=== PATIENT | female | born 1950 | race Caucasian/White ===

== ENCOUNTER → 2017-02-16 | Outpatient (CLI) | payer MEDICARE, OTHER ==
[2017-02-16 10:24] LABS: HEMOGLOBIN 15.5 gm/dl (12.3-15.3); RED BLOOD COUNT 4.79 M/UL (4.00-5.10); WHITE BLOOD COUNT 8.9 K/UL (4.5-11.0)
[2017-02-16 10:50] LABS: BUN/CREATININE RATIO 20 (0-10)
== END ==
LOC: CT 09:00
PROVIDERS: Internal Medicine
DX: R10.9 Unspecified abdominal pain (principal); R53.83 Other fatigue; E78.5 Hyperlipidemia, unspecified; I10 Essential (primary) hypertension; E55.9 Vitamin D deficiency, unspecified; Z79.899 Other long term (current) drug therapy
CPT/HCPCS: 36415; 80053; 80074; 84443; 85025; J7050; Q9962

== ENCOUNTER → 2017-04-06 | Outpatient (CLI) | payer MEDICARE | LOC: RAD 08:59 | DX: R10.32 Left lower quadrant pain (principal) | CPT/HCPCS: 74250 ==

== ENCOUNTER → 2020-12-22 | Outpatient (CLI) | payer MEDICARE | LOC: RAD 17:12 | DX: M17.0 Bilateral primary osteoarthritis of knee (principal); M79.671 Pain in right foot; M25.471 Effusion, right ankle; Z86.718 Personal history of other venous thrombosis and embolism | CPT/HCPCS: 73564; 73610 ==

== ENCOUNTER → 2021-02-09 | Outpatient (CLI) | payer MEDICARE | LOC: HEART CORB 10:52 | DX: Z01.810 Encounter for preprocedural cardiovascular examination (principal); I10 Essential (primary) hypertension; I48.0 Paroxysmal atrial fibrillation; R07.2 Precordial pain; Z79.01 Long term (current) use of anticoagulants | CPT/HCPCS: 78452; A9502; J0280; J2785 ==

== ENCOUNTER → 2021-09-15 | Outpatient (CLI) | payer MEDICARE | LOC: MAMO 10:00 | DX: Z12.31 Encounter for screening mammogram for malignant neoplasm of breast (principal); M81.0 Age-related osteoporosis without current pathological fracture; M85.852 Other specified disorders of bone density and structure, left thigh | CPT/HCPCS: 77063; 77067; 77080 ==